=== PATIENT | male | born 1965 | race Caucasian/White ===

== ENCOUNTER → 2018-03-12 | Outpatient (REF) | payer BC, MEDICARE ==
[2018-03-12 17:46] LABS: TOTAL PROTEIN 8.1 GM/DL (6.4-8.2)
[2018-03-12 18:00] LABS: TOTAL PROTEIN,RANDOM URINE 25.9 MG/DL (0.0-12.0); URINE TOTAL PROTEIN 25.9 MG/DL (0-12)
[2018-03-15 00:07] LABS: FREE KAPPA LIGHT CHAINS SERUM 25.1 mg/L (3.3-19.4); FREE LAMBDA LIGHT CHAINS SERUM 22.8 mg/L (5.7-26.3)
[2018-03-17 11:30] LABS: ALBUMIN 3.94 GM/DL (3.29-5.55); ALBUMIN % 48.7 % (55.8-66.1); ALPHA-1-GLOBULIN % 4.7 % (2.9-4.9); ALPHA-1-GLOBULINS 0.38 GM/DL (0.17-0.41); ALPHA-2-GLOBULINS 1.23 GM/DL (0.42-0.99); ALPHA-2-GLOBULINS % 15.2 % (7.1-11.8); BETA-1-GLOBULINS % 7.4 % (4.7-7.2); BETA-2-GLOBULINS 0.74 GM/DL (0.19-0.55); BETA-2-GLOBULINS % 9.1 % (3.2-6.5); GAMMA GLOBULIN % 14.9 % (11.1-18.8); GAMMA GLOBULINS 1.21 GM/DL (0.65-1.58)
[2018-03-19 00:09] LABS: ANCA-ATYPICAL <1:20 titer (Neg:<1:20); ANTI DOUBLE STRAND-DNA AB <1 IU/mL (0-9); ANTINUCLEAR ANTIBODIES DIRECT Negative (Negative); CYTOPLASMIC NEUTROP AB ANCA-C <1:20 titer (Neg:<1:20); PERINUCLEAR AB ANCA-P <1:20 titer (Neg:<1:20)
[2018-03-19 14:28] LABS: UPEP INTERPRETATION NO M-SPIKE NOTED; URINE VOLUME RANDOM ML
== END ==
LOC: M LAB REF 16:59
DX: R80.9 Proteinuria, unspecified (principal)
CPT/HCPCS: 84165

== ENCOUNTER → 2018-03-17 | Outpatient (CLI) | payer BC, MEDICARE ==
[~2018-03-17] MED LIST: ISOVUE-370 76% 100ML VIAL (Q9967) As Ordered
== END ==
LOC: M RAD 16:45
DX: N28.1 Cyst of kidney, acquired (principal); I10 Essential (primary) hypertension; R80.9 Proteinuria, unspecified
CPT/HCPCS: Q9967

== ENCOUNTER → 2024-09-27 | Outpatient (REF) | payer MEDICARE | LOC: M SFHCDERM 11:15 | PROVIDERS: ATTEND Nurse Practitioner Family | DX: L91.8 Other hypertrophic disorders of the skin (principal) ==